=== PATIENT | female | born 1930 | race Caucasian/White ===

== ENCOUNTER → 2017-01-21 | Outpatient (CLI) | payer OTHER, BC | LOC: CIMAGING 16:39 | PROVIDERS: ATTEND Internal Medicine | DX: S49.92XA Unspecified injury of left shoulder and upper arm, initial encounter (principal) | CPT/HCPCS: 73030-PO; G0463-PO ==

== ENCOUNTER → 2017-01-27 | Outpatient (CLI) | payer OTHER, BC | LOC: FIMAGING 10:13 | PROVIDERS: ATTEND Internal Medicine | DX: Z03.89 Encounter for observation for other suspected diseases and conditions ruled out (principal) ==

== ENCOUNTER 2017-07-02 12:54 | Observation (INO) | payer OTHER, BC ==
--- NOTE | 2017-07-02 13:40 | EDPHY ---
HPI/HX/ROS/PE/MDM Narrative: CHIEF COMPLAINT: Possible right arm clot HPI: This patient is an 87 year-old female with history of CAD arriving via EMS from the [facility] for evaluation of swelling in her right hand with associated erythema extending up her right forearm. She has noted an intermittent soft squishy lump in the dorsal aspect of her right hand. Most recently, this swelling has persisted and yesterday she noted redness spreading up her right forearm. She visited staff at the [facility] for evaluation, who called EMS for evaluation of a possible thrombus. The patient denies chest pain, fever, or shortness of breath. She had never had similar symptoms in the past. She denies any history of blood clots in the past or clotting disorders.. REVIEW OF SYSTEMS: Aside from elements discussed in the HPI, a comprehensive 10-point review of systems was reviewed and is negative. PMH: 1. Pacemaker in place. 2. Coronary artery disease 3. Hypertension 4. Hyperlipidemia 5. Depression SOCIAL HISTORY: Lives at [facility]. . Retired. PHYSICAL EXAM: General:Patient is alert, in no acute distress. ENT:Eyes are normal to inspection. ENT inspection normal. Neck: Normal inspection. Full range of motion. Respiratory:No respiratory distress. Breath sounds normal bilaterally. Cardiovascular: Regular rate and rhythm. Strong peripheral pulses. Normal cap refill. Abdomen:The abdomen is nontender to palpation. There are no peritoneal signs. There are normal bowel sounds. Back: Normal to inspection. No tenderness to palpation. Skin: Normal color (see extremity findings). No rash. Warm and dry. Extremities: Soft tender swelling 3cm diameter on dorsum of right hand with erythema extending proximally to the mid forearm as well as distally. Appears well-demarcated. Normal appearance. Full range of motion. Neuro: Oriented x3. Normal motor function. Normal sensory function. ED Course: 87 y/o female presents with right hand swelling. Exam reveals an area of soft tender swelling 3cm in diameter on the dorsum of the right hand with erythema extending proximally to the mid forearm as well as distally. The area appears well-demarcated. Plan for US upper extremity to rule out clot. Spoke with Dr. Sheth, radiologist. US right arm negative for DVT. Evidence of effusion along tendon sheath. Plan to consult with hand specialist. Plan for labs including CBC, BMP. Labs within normal limits. Concern for possible infection given physical exam and ultrasound results. Plan to admit for further evaluation. IV established. Plan to administer 1gm IV Ancef. 15:08 Spoke with hospitalist service. Dr. Guillory accepts admission for tendon sheath infection. MDM: This patient presents with tender swelling on the dorsum of her hand complicated by extension of erythema proximally to her mid-forearm. I suspect this may represent inflammation complicated by bleeding given history of Eliquis , but US shows fluid around tendon sheath, and described to me by phone as loculated, so I am concerned this may represent infection, despite normal CBC. - Data Points Imaging Results: Imaging Impressions Extremity Venous Study 07/02/17 12:56 Impression: 1. No right arm DVT. 2. Extensor tendon sheath effusion. Results discussed with Dr. Altamirano. Imaging: Discussed imaging studies w/ inbound call center representative Radiologist Laboratory Results: Laboratory Results 07/02/17 14:30 07/02/17 14:30 07/02/17 07/02/17 14:30 14:30 WBC 6.58 10^3/uL 10^3/uL (3.80-9.50) RBC 4.20 10^6/uL 10^6/uL (4.18-5.33) Hgb 13.4 g/dL g/dL (12.6-16.3) Hct 38.7 % % (38.0-47.0) MCV 92.1 fL fL (81.5-99.8) MCH 31.9 pg pg (27.9-34.1) MCHC 34.6 g/dL g/dL (32.4-36.7) RDW 13.2 % % (11.5-15.2) Plt Count 286 10^3/uL 10^3/uL (150-400) MPV 9.6 fL fL (8.7-11.7) Neut % (Auto) 68.9 % % (39.3-74.2) Lymph % (Auto) 16.7 % % (15.0-45.0) [place] % (Auto) 9.6 % % (4.5-13.0) Eos % (Auto) 3.6 % % (0.6-7.6) Baso % (Auto) 0.9 % % (0.3-1.7) Nucleat RBC Rel Count 0.0 % % (0.0-0.2) Absolute Neuts (auto) 4.53 10^3/uL 10^3/uL (1.70-6.50) Absolute Lymphs (auto) 1.10 10^3/uL 10^3/uL (1.00-3.00) Absolute Monos (auto) 0.63 10^3/uL 10^3/uL (0.30-0.80) Absolute Eos (auto) 0.24 10^3/uL 10^3/uL (0.03-0.40) Absolute Basos (auto) 0.06 10^3/uL 10^3/uL (0.02-0.10) Absolute Nucleated RBC 0.00 10^3/uL 10^3/uL (0-0.01) Immature Gran % 0.3 % % (0.0-1.1) Immature Gran # 0.02 10^3/uL 10^3/uL (0.00-0.10) Sodium 140 mEq/L mEq/L (134-144) Potassium 4.5 mEq/L mEq/L (3.5-5.2) Chloride 104 mEq/L mEq/L (97-110) Carbon Dioxide 27 mEq/l mEq/l (22-31) Anion Gap 9 mEq/L mEq/L (8-16) BUN 18 mg/dL mg/dL (7-23) Creatinine 1.0 mg/dL mg/dL (0.6-1.0) Estimated GFR 53 Glucose 85 mg/dL mg/dL (70-100) Calcium 9.3 mg/dL mg/dL (8.5-10.4) Medications Given: Discontinued Medications Cefazolin Sodium/Dextrose (Ancef 1 Gm (Premix)) 50 mls @ 200 mls/hr IV EDNOW ONE PRN Reason: Protocol Stop: 07/02/17 15:23 Last Admin: 07/02/17 15:41 Dose: 50 mls General Initial Vital Signs: Initial Vital Signs Temperature (C) 36.8 C 07/02/17 13:06 Heart Rate 60 07/02/17 13:06 Respiratory Rate 16 07/02/17 13:06 Blood Pressure 128/93 H 07/02/17 13:06 O2 Sat (%) 94 07/02/17 13:06 O2 Delivery Mode Room Air Allergies/Adverse Reactions: Sulfa (Sulfonamide Antibiotics) Allergy (Severe, Verified 12/11/13 14:08) atorvastatin Allergy (Unknown, Verified 07/02/17 18:35) Home Medications: Medication Instructions Recorded Benazepril HCl [Lotensin (*)] 20 mg PO DAILY 11/25/11 Calcium Carbonate/Vitamin D3 1 each PO DAILY 11/25/11 [Calcium 600-Vit D3 200 Tablet] Multivitamin [Tab-A-Anjelica] 1 each PO DAILY 11/25/11 Apixaban [Eliquis] 2.5 mg PO BID 07/02/17 Diltiazem HCl [Diltiazem ER] 120 mg PO DAILY 07/02/17 Paroxetine HCl 20 mg PO DAILY@18 07/02/17 Simvastatin 10 mg PO DAILY@18 07/02/17 Triamcinolone 0.1% [Triamcinolone 1 alicia TP BID PRN 07/02/17 0.1% Cream (*)] buPROPion [Wellbutrin 75mg (*)] 75 mg PO DAILY 07/02/17 Departure - Departure Disposition: [facility] Acute Clinical Impression: Infection of tendon sheath Condition: Fair Report Scribed for: Mayank Altamirano Report Scribed by: Krista Valdovinos Date of Report: 07/02/17 Time of Report: 14:10 Physician Review and Approval Statement: Portions of this note were transcribed by an ED scribe. I personally performed the history, physical exam, and medical decision making; and confirm the accuracy of the information in the transcribed note.
[2017-07-02 14:40] LABS: PLATELET COUNT 286 10^3/uL (150-400)
[2017-07-02 18:26] VITALS: RESP 16
[2017-07-02] MEDS ORDERED: ONDANSETRON 4 MG/2 ML VIAL IVP PRN (19:04)
[2017-07-02] MEDS ORDERED: ACETAMINOPHEN 325 MG TAB PO PRN (19:04)
[2017-07-02] MEDS ORDERED: ONDANSETRON DISINTEGRATING 4 MG TAB PO PRN (19:04)
--- NOTE | 2017-07-02 20:20 | GHP ---
[f rep st] HISTORY AND PHYSICAL DATE OF ADMISSION: 07/02/2017 CHIEF COMPLAINT: Left hand redness. HISTORY OF PRESENT ILLNESS: This is an 87-year-old female with a history of previous TIAs on Eliquis . She states she sometimes gets tendon sheath inflammation on her right dorsum of the hand. This edouard ppened yesterday. swelling. However, it was accompanied by increasing redness to her fin gers and up through her forearm. She is not having any fevers or chills. She was told to come to [facility] emergency department. She is not having much pain. It actually has gotten a lot better over the l ast several hours. She did receive a dose of IV Ancef in the emergency department. REVIEW OF SYSTEMS: A 10-point review of systems was obtained and was negative. PAST MEDICAL HISTORY: 1. TIAs with possible atrial fibrillation on anticoagulation. 2. Pacemaker. 3. Coronary artery disease. 4. Hypertension. 5. Hyperlipidemia. 6. Depression. SOCIAL HISTORY: Lives in [place]. No smoking or alcohol. FAMILY HISTORY: Both parents are . PHYSICAL EXAMINATION: VITAL SIGNS: Afebrile, blood pressure is 120/93, heart rate 76, oxygen satura tion 95% on room air. GENERAL: The patient is well developed, thin but in no apparent distress. HE ENT: Nonicteric sclerae. Extraocular movements intact. Moist mucous membranes. NECK: Supple. No thyromegaly. LUNGS: Good effort. Clear to auscultation bilaterally. CARDIOVASCULAR: Regular rat e and rhythm. No murmurs, gallops. ABDOMEN: Positive bowel sounds. Soft, nontender, nondistended. No hepatosplenomegaly. EXTREMITIES: Right hand shows some mild erythema, but it seems more like e cchymosis tracking up to the mid forearm into the distal fingers with a sharp delineation and no sign ificant erythema or warmth. NEUROLOGIC: Moving all 4 extremities equally. PSYCH: Normal affect. LABORATORIES: CBC is completely normal. Chemistries completely normal. Venous ultrasound shows no clot, does show right tendon sheath effusion. ASSESSMENT: This is an 87-year-old female presenting with tendon sheath infection versus hematoma. PLAN: I am favoring hematoma currently as she has no elevated white blood cell count nor fever and t he appearance looks more like hematoma rather than infection. She is on Eliquis. We will discontinu e this. I am going to check a procalcitonin which will help us rule out infection. I believe Orthop edic Surgery is also following. She can probably be discharged tomorrow either off her Eliquis or on an oral antibiotic. /[id number]/MODL
[2017-07-02] MEDS ORDERED: PRAVASTATIN SODIUM 20 MG TAB ONE (21:08)
[2017-07-02] MEDS ORDERED: PARoxetine HCL 20 MG TAB ONE (21:08)
[2017-07-03 04:41] LABS: PLATELET COUNT 283 10^3/uL (150-400)
[2017-07-03 08:07] VITALS: PULSE 87; O2SAT 94
[2017-07-03] MEDS ORDERED: BENAZEPRIL HCL 20 MG TAB PO SCH (09:00)
[2017-07-03] MEDS ORDERED: buPROPion 75 MG TAB PO SCH (09:00)
[2017-07-03] MEDS ORDERED: DILTIAZEM CD 120 MG CAP PO SCH (09:00)
--- NOTE | 2017-07-03 11:43 | HOSPPROG ---
Hospitalist Progress Note Assessment/Plan: Patient is an 87-year-old female with a history of previous TIAs. She is on Eliquis. She sometimes gets tendon sheath inflammation on her right dorsum of her hand and it sounds that this occurred prior to admission. She came to the ER because she had increasing redness to her fingers and up to her forearm. Today is my 1st encounter with the patient. Chart reviewed. * right arm extensor tendon sheath effusion -initial concern was infection versus a hematoma -procalcitonin is not elevated -white blood cell count is stable -reviewed her care with orthopedics, likely a ganglion cyst * TIAs with possible atrial fibrillation on anticoagulation * coronary artery disease * hypertension -bp stable *Plan: dc home w further f/u with Dr Estrada Subjective: Monica said her hand is much better today. Objective: Vital Signs Temp Pulse Resp BP Pulse Ox 36.6 C 87 16 111/70 94 07/03/17 07:57 07/03/17 08:51 07/03/17 07:57 07/03/17 08:51 07/03/17 07:57 Laboratory Results 07/03/17 04:25 07/03/17 04:25 07/02/17 07/03/17 07/04/17 05:59 05:59 05:59 Intake Total 50 Balance 50 - Physical Exam Constitutional: no apparent distress, appears nourished, other (slender) Eyes: PERRL Ears, Nose, Mouth, Throat: hearing normal Cardiovascular: regular rate and rhythym Respiratory: no respiratory distress Gastrointestinal: normoactive bowel sounds Skin: warm, other (right hand shows ecchymosis with some erythema over the knuckles, not warm to the touch) Musculoskeletal: full muscle strength Neurologic: AAOx3 Psychiatric: interacting appropriately, not anxious ICD10 Worksheet Patient Problems: Problems Problem Status Onset Infection of tendon sheath Acute Heart block Active
[2017-07-03 11:59] VITALS: BP 126/73; TEMP 97.6
--- NOTE | 2017-07-03 13:02 | GCON ---
[f rep st] CONSULTATION DATE OF CONSULTATION: 07/03/2017 CURRENT COMPLAINT: Right dorsal hand mass. HISTORY OF PRESENT ILLNESS: This is an 87-year-old female who has had a mass on the dorsal portion o f her hand that gets bigger and smaller, depending on her activity level. It has recently gotten daren er and caused a great deal of bruising on the dorsal portion of her hand. She was admitted to the [facility] for further observation and concern about a possible infection. She had an ultrasound in the E R revealing fluid-filled mass on the dorsal portion of her hand. PHYSICAL EXAMINATION: The patient remains neurologically intact of the radial, median and ulnar nerv es of the hand. She has free movement through the wrist and through the fingers with particular empha sis on the extensors of the wrist and digits. She has a soft ballotable mass on the dorsal portion of her hand which appears to be loculated with multiple small masses within it. It is nontender to pal pation. There is no redness, no erythema and no significant warmth. She does have bruising that has settled into the MCP joints and along the proximal phalanges of the hand. ASSESSMENT AND PLAN: The patient is status post right dorsal wrist and hand ganglion. Options were d iscussed the patient to include continued conservative management versus more aggressive treatment beltran ch as aspiration rate than operative treatment. I have strongly suggested she consider more conserva tive management for now. If, however, these become more bothersome, she is welcome to undergo a more aggressive treatment but otherwise she is welcome to use the hand ad jamila. /[id number]/MODL
--- NOTE | 2017-07-03 15:08 | ASDISCHSUM ---
Discharge Information Plan Status:Home with No Needs Medically Cleared to Leave: Discharge Date:07/03/2017 12:48 PM CM D/C Disposition:Home, Routine, Self-Care ADT D/C Disposition:Home, Routine, Self-Care Projected Discharge Date:07/03/2017 12:48 PM Transportation at D/C: Discharge Delay Reason: Follow-Up Date:07/03/2017 12:48 PM Discharge Slot: Final Diagnosis: Placement Information Patient Contact Information Contact Name:KYLEE Relationship: Address:[address] [place] [address] [address] Work Phone: [facility]:[place] Alternate Phone: [facility]/Zip Code:[place] [address] Email: Financial Information Financial Class: Primary Plan Desc:MEDICARE OUTPATIENT Primary Plan Number:[id number] Secondary Plan Desc:[facility] FEDERAL PLAN Secondary Plan Number:[id number] Assessment Information LACE LACE Acuity / Level of Care Answers: Was the patient admitted to hospital via the emergency department? Yes: Emergency dept visits in Answers: 1 last 6 months Score: 4 Date Signed: 07/02/2017 03:55 PM Electronically Signed By:Nannette Lucas RN Intervention Information
[2017-07-03] MEDS ORDERED: PRAVASTATIN SODIUM 20 MG TAB PO SCH (18:00)
[2017-07-03] MEDS ORDERED: PARoxetine HCL 20 MG TAB PO SCH (18:00)
--- NOTE | 2017-07-04 03:34 | GDS ---
[f rep st] DISCHARGE SUMMARY DISCHARGE DIAGNOSES: 1. Right arm extensor tendon sheath fusion with associated ganglion. 2. Transient ischemic attacks with possible atrial fibrillation on chronic anticoagulation. 3. Coronary artery disease. 4. Hypertension. HISTORY OF PRESENT ILLNESS: Briefly, the patient is an 87-year-old female with a history of previous TIAs. She is on Eliquis. She sometimes gets tendon sheath inflammation in the right dorsum of her hand, and it sounds like this was occurring. There was also concern that she might have had an infection versus a hematoma. She was seen and evaluated by myself and Dr. Holder. Dr. Holder thought the lump on her hand was a ganglion that she might benefit from removal or conservative treatment. She will further follow up with the orthopedic surgeon in the outpatient setting. HOSPITAL COURSE: 1. Right arm extensor tendon sheath effusion with associated ganglion cyst. The pain is much better, does not appear to be infected. Will have her follow up with Dr. Estrada on Wednesday for further evaluation. White blood cell count is stable. She is not febrile, and the hand is not warm. It appears that she bled into the fingers and knuckle area. She is on Eliquis. Recommendation was to hold the Eliquis for another day and then resume. If the swelling recurs after being on the Eliquis, to further discuss with Dr. Stiles. 2. TIAs, possible atrial fibrillation. She is on anticoagulation. 3. Coronary artery disease, stable. 4. Hypertension. Blood pressure is stable. DISCHARGE CONDITION: Stable. Blood pressure is 111/70, O2 sats on room air 94% , respiratory rate 16, pulse is 87, temperature 36.6 Celsius. MEDICATIONS AT DISCHARGE: Please see the EMR. DISCHARGE INSTRUCTIONS: 1. Further follow up with Dr. Stiles in regard to her Eliquis. 2. To elevate her hand 3 times a day above her heart and do warm compresses. 3. If her hand gets more red, swollen, to follow up with Dr. Estrada or return to the ER. /[id number]/MODL MTDD
== END 2017-07-03 12:48 | disposition home or self-care (01) ==
LOC: EDUNIT# → F3N 18:36
PROVIDERS: ADMIT Internal Medicine; ATTEND Internal Medicine
DX: M67.431 Ganglion, right wrist (principal); M25.431 Effusion, right wrist; G45.9 Transient cerebral ischemic attack, unspecified; I25.10 Atherosclerotic heart disease of native coronary artery without angina pectoris; I10 Essential (primary) hypertension
CPT/HCPCS: 93971; G0378; J0690; 96374

== ENCOUNTER → 2017-09-23 | Outpatient (CLI) | payer OTHER, BC | LOC: BMCIMAGING 14:57 | PROVIDERS: ATTEND Internal Medicine | DX: R79.89 Other specified abnormal findings of blood chemistry (principal) ==

== ENCOUNTER 2018-08-16 19:03 | Inpatient (IN) | payer OTHER, BC ==
[2018-08-16] MEDS ORDERED: NS 500 ML IV ONE (19:20)
--- NOTE | 2018-08-16 19:44 | EDPHY ---
H & P Stated Complaint: Diarrhea x4 days, recent pnuemonia/antibiotic course, dehydrated, weakness Time Seen by Provider: 08/16/18 19:17 HPI/ROS: CHIEF COMPLAINT: Diarrhea, generalized weakness HISTORY OF PRESENT ILLNESS: 88-year-old female presents with diarrhea and generalized weakness. She was diagnosed with pneumonia 12 days ago and placed on Zithromax and cefuroxime. She completed a 7 day course of antibiotics. She continues to have a moist cough, but otherwise feels better. Onset of diarrhea 1 week ago. The diarrhea is watery and occurs 2-3 times daily. Associated with gradually increasing generalized weakness and 1 episode of vomiting today. Today she was too weak to walk unassisted. History of C diff colitis 2 years ago. No fever or abdominal pain. She usually walks with a steady gait without assistance. REVIEW OF SYSTEMS: complete 10 point ROS reviewed and is negative except for the noted elements in the HPI - Personal History Current Tetanus Diphtheria and Acellular Pertussis (TDAP): Yes Tetanus Vaccine Date: LESS THAN 10 YEARS - Medical/Surgical History Hx Asthma: No Hx Chronic Respiratory Disease: Yes Hx Diabetes: No Hx Cardiac Disease: No Hx Renal Disease: No Hx Cirrhosis: No Hx Alcoholism: No Hx HIV/AIDS: No Hx Splenectomy or Spleen Trauma: No Other PMH: COPD, HTN, depression, cholesterol, Pacemaker, scilosis - Social History Smoking Status: Former smoker Alcohol Use: Sober Drug Use: None - Physical Exam Exam: General Appearance: Alert, pleasant, answers questions appropriately Eyes: Pupils equal and round, no conjunctival pallor ENT, Mouth: Mucous membranes slightly dry Neck: Normal inspection Respiratory: Rales at the right base Cardiovascular: Regular rate and rhythm Gastrointestinal: Abdomen is soft and nontender Neurological: A&O, nonfocal exam, gait not assessed Skin: Warm and dry Extremities: Normal inspection Psychiatric: Mood and affect normal Constitutional: Initial Vital Signs Temperature (C) 37.3 C 08/16/18 19:13 Heart Rate 71 08/16/18 19:13 Respiratory Rate 19 08/16/18 19:13 Blood Pressure 120/86 H 08/16/18 19:13 O2 Sat (%) 95 08/16/18 19:13 O2 Delivery Mode Room Air Allergies/Adverse Reactions: Sulfa (Sulfonamide Antibiotics) Allergy (Severe, Verified 08/16/18 19:13) atorvastatin Allergy (Unknown, Verified 08/16/18 21:41) Home Medications: Medication Instructions Recorded Benazepril HCl [Lotensin (*)] 10 mg PO DAILY 11/25/11 Calcium Carbonate/Vitamin D3 1 each PO DAILY 11/25/11 [Calcium 600-Vit D3 200 Tablet] Multivitamin [Tab-A-Anjelica] 1 each PO DAILY 11/25/11 Apixaban [Eliquis] 2.5 mg PO BID 07/02/17 Paroxetine HCl 20 mg PO DAILY@18 07/02/17 buPROPion [Wellbutrin 75mg (*)] 75 mg PO DAILY 07/02/17 Atorvastatin Calcium [Lipitor 10 10 mg PO HS 08/16/18 mg (*)] Medical Decision Making ED Course/Re-evaluation: This pt presents with diarrhea and dehydration. Concerning for recurrent cdif colitis. Abd exam is benign. IV normal saline 1 L given. Labs reveal hyponatremia, secondary to dehydration, likely contributing to weakness. Pt unable to provide stool sample in ED. Significant fall risk, will admit for rehydration and further eval. The hospitalist service was consulted for admission. Differential Diagnosis: includes though not limited to cdif colitis, SBO, diverticulitis, appy, bowel perforation - Data Points Laboratory Results: Laboratory Results 08/17/18 04:52 08/17/18 04:52 Medications Given: Discontinued Medications Apixaban (Eliquis) 2.5 mg PO BID ARNIE Stop: 02/13/19 08:59 Last Admin: 08/18/18 09:23 Dose: 2.5 mg Atorvastatin Calcium (Lipitor) 10 mg PO HS ARNIE Stop: 02/13/19 20:59 Last Admin: 08/17/18 20:53 Dose: 10 mg Benazepril HCl (Lotensin) 10 mg PO DAILY ARNIE Stop: 02/13/19 09:44 Last Admin: 08/18/18 09:24 Dose: 10 mg Bupropion HCl (Wellbutrin) 75 mg PO DAILY ARNIE Stop: 02/13/19 08:59 Last Admin: 08/18/18 09:23 Dose: 75 mg Sodium Chloride (Ns) 500 mls @ 0 mls/hr IV EDNOW ONE; Wide Open PRN Reason: Protocol Stop: 08/16/18 19:21 Last Admin: 08/16/18 19:51 Dose: 500 mls Multivitamins (Tab-A-Anjelica) 1 each PO DAILY [facility] Stop: 02/13/19 08:59 Last Admin: 08/18/18 09:23 Dose: 1 each Paroxetine HCl (Paxil) 20 mg PO DAILY@18 [facility] Stop: 02/13/19 17:59 Last Admin: 08/17/18 19:36 Dose: 20 mg Departure - Departure Disposition: [facility] Acute Clinical Impression: Dehydration Diarrhea Qualifiers: Diarrhea type: presumed infectious Qualified Code(s): R19.7 - Diarrhea, unspecified Condition: Fair
[2018-08-16 20:04] LABS: PLATELET COUNT 314 10^3/uL (150-400)
[2018-08-16] MEDS ORDERED: ONDANSETRON 4 MG/2 ML VIAL IVP PRN (20:08)
[2018-08-16] MEDS ORDERED: ACETAMINOPHEN 325 MG TAB PO PRN (20:08)
[2018-08-16] MEDS ORDERED: ONDANSETRON DISINTEGRATING 4 MG TAB PO PRN (20:08)
[2018-08-16] MEDS ORDERED: NS 1,000 ML IV SCH (20:15)
--- NOTE | 2018-08-16 21:08 | PDGENHP ---
History and Physical - Chief Complaint Diarrhea, Weakness - History of Present Illness Monica Leavitt is an 88 yo F with a PMHx of A Fib, HTN, HLD who presents to [facility] for diarrhea and weakness. Her daughter is at the bedside who has helped with hx taking. They report that patient was diagnosed with PNA 2 weeks ago and was rx Azithromycin and Cefuroxime for 7 days which she completed last . Towards the end of the 7 day course of abx and for the past 4 days she has experienced 2-5 watery bowel movements per day. She denies any significant abdominal pain. She had one episode of nausea with non-bloody emesis this morning. She started taking Imodium a few days ago with some improvement in frequency of diarrhea. She reports that she has become fatigued and experiencing generalized weakness. She denies any chest pain, SOB, f/c, edema, palpitations. She reports continued mildly productive cough which has significantly improved since abx. History Information - Allergies/Home Medication List Allergies/Adverse Reactions: Sulfa (Sulfonamide Antibiotics) Allergy (Severe, Verified 08/16/18 19:13) atorvastatin Allergy (Unknown, Verified 08/16/18 19:13) Home Medications: Benazepril HCl [Lotensin (*)] 20 mg PO DAILY 11/25/11 [Last Taken 11/24/11 06:00 ] Calcium Carbonate/Vitamin D3 [Calcium 600-Vit D3 200 Tablet] 1 each PO DAILY 26/06 [Last Taken 11/24/11 06:00] Multivitamin [Tab-A-Anjelica] 1 each PO DAILY 11/25/11 [Last Taken 08/16/18] Apixaban [Eliquis] 2.5 mg PO BID 07/02/17 [Last Taken 08/16/18] Diltiazem HCl [Diltiazem ER] 120 mg PO DAILY 07/02/17 [Last Taken Unknown] Paroxetine HCl 20 mg PO DAILY@18 07/02/17 [Last Taken 08/15/18] buPROPion [Wellbutrin 75mg (*)] 75 mg PO DAILY 07/02/17 [Last Taken 08/16/18] Atorvastatin Calcium [Lipitor 10 mg (*)] 10 mg PO HS 08/16/18 [Last Taken Unknown] I have personally reviewed and updated: family history, medical history, social history, surgical history - Past Medical History atrial fibrillation, hypertension, hyperlipidemia - Social History Smoking Status: Former smoker Alcohol Use: Sober Drug Use: None Review of Systems Review of Systems: ROS: 10pt was reviewed & negative except for what was stated in HPI & below Physical Exam Physical Exam: Temp Pulse Resp BP Pulse Ox 37.3 C 62 18 146/66 H 92 08/16/18 19:13 08/16/18 20:56 08/16/18 20:56 08/16/18 20:56 08/16/18 20:56 Constitutional: no apparent distress Eyes: PERRL Ears, Nose, Mouth, Throat: dry mucous membranes Cardiovascular: regular rate and rhythym Respiratory: no respiratory distress Gastrointestinal: soft, non-tender abdomen, No guarding, No rebound, No distension Skin: warm Musculoskeletal: generalized weakness Neurologic: AAOx3 Psychiatric: interacting appropriately Lab Data & Imaging Review 08/16/18 19:50 08/16/18 19:50 WBC 11.79 10^3/uL (3.80-9.50) H 08/16/18 19:50 RBC 3.98 10^6/uL (4.18-5.33) L 08/16/18 19:50 Hgb 11.8 g/dL (12.6-16.3) L 08/16/18 19:50 Hct 35.2 % (38.0-47.0) L 08/16/18 19:50 MCV 88.4 fL (81.5-99.8) 08/16/18 19:50 MCH 29.6 pg (27.9-34.1) 08/16/18 19:50 MCHC 33.5 g/dL (32.4-36.7) 08/16/18 19:50 RDW 13.7 % (11.5-15.2) 08/16/18 19:50 Plt Count 314 10^3/uL (150-400) 08/16/18 19:50 MPV 10.4 fL (8.7-11.7) 08/16/18 19:50 Neut % (Auto) 77.0 % (39.3-74.2) H 08/16/18 19:50 Lymph % (Auto) 10.1 % (15.0-45.0) L 08/16/18 19:50 [place] % (Auto) 11.7 % (4.5-13.0) 08/16/18 19:50 Eos % (Auto) 0.3 % (0.6-7.6) L 08/16/18 19:50 Baso % (Auto) 0.4 % (0.3-1.7) 08/16/18 19:50 Nucleat RBC Rel Count 0.0 % (0.0-0.2) 08/16/18 19:50 Absolute Neuts (auto) 9.08 10^3/uL (1.70-6.50) H 08/16/18 19:50 Absolute Lymphs (auto) 1.19 10^3/uL (1.00-3.00) 08/16/18 19:50 Absolute Monos (auto) 1.38 10^3/uL (0.30-0.80) H 08/16/18 19:50 Absolute Eos (auto) 0.03 10^3/uL (0.03-0.40) 08/16/18 19:50 Absolute Basos (auto) 0.05 10^3/uL (0.02-0.10) 08/16/18 19:50 Absolute Nucleated RBC 0.00 10^3/uL (0-0.01) 08/16/18 19:50 Immature Gran % 0.5 % (0.0-1.1) 08/16/18 19:50 Immature Gran # 0.06 10^3/uL (0.00-0.10) 08/16/18 19:50 Sodium 129 mEq/L (135-145) L 08/16/18 19:50 Potassium 4.5 mEq/L (3.5-5.2) 08/16/18 19:50 Chloride 100 mEq/L (97-110) 08/16/18 19:50 Carbon Dioxide 21 mEq/l (22-31) L 08/16/18 19:50 Anion Gap 8 mEq/L (6-14) 08/16/18 19:50 BUN 17 mg/dL (7-23) 08/16/18 19:50 Creatinine 1.0 mg/dL (0.6-1.0) 08/16/18 19:50 Estimated GFR 52 08/16/18 19:50 Glucose 118 mg/dL (70-100) H 08/16/18 19:50 Calcium 8.8 mg/dL (8.5-10.4) 08/16/18 19:50 Assessment & Plan Assessment: Diarrhea (Acute) - Ongoing for 4 days since treatment with abx - Minimal abdominal pain, physical exam with non-tender, non-distended abdomen - Likely Antibiotic related diarrhea vs. C Diff vs. other GI Pathogen - GI PCR and C Diff Ordered - Patient does have hx of C Diff, unclear if treated at that time 2 yrs ago - If C Diff negative, start imodium Dehydration (Acute) - In setting of diarrhea above - S/p 500 cc IVF bolus in ED - BUN/Cr WNL, will continue mIVF overnight Hyponatremia - Na 129 on admission - Likley hypovolemic in setting of decreased PO intake, diarrhea - S/p 500 cc bolus NS in ED, will continue m IVF overnight - Repeat Na in the morning HLD - Continue home Simvastatin Recent PNA - CXR on admission showing no acute consolidation - No need for further abx FEN: IVF, Regular DVT PPx: Home [place] Code: FULL Dispo: Admit to Observation
[2018-08-17 05:29] LABS: PLATELET COUNT 323 10^3/uL (150-400)
[2018-08-17] MEDS: MULTIVITAMINS 1 EACH TAB PO SCH (11:34)
[2018-08-17] MEDS: APIXABAN 2.5 MG TAB PO SCH ×2 (11:34→20:53)
[2018-08-17] MEDS: BENAZEPRIL HCL 10 MG TAB PO SCH (11:34)
[2018-08-17] MEDS: buPROPion 75 MG TAB PO SCH (11:35)
[2018-08-17] MEDS ORDERED: BENZONATATE 100 MG CAP PO PRN (13:56)
--- NOTE | 2018-08-17 14:49 | ASMTCMCOM ---
CM Note CM Note Notes: Met with Pt who was admitted with Diarrhea and general weakness. PT & OT recomend Home Care. Provided Pt with a list of HC, she will discuss with her son and let CM know. Pt lives in independant living at the [facility]. D/c plan [facility] Date Signed: 08/17/2018 02:48 PM Electronically Signed By:Radha Plascencia
--- NOTE | 2018-08-17 17:14 | HOSPPROG ---
Hospitalist Progress Note Assessment/Plan: Diarrhea (Acute) - Ongoing for 4 days since treatment with abx - Minimal abdominal pain, physical exam with non-tender, non-distended abdomen - Likely Antibiotic related diarrhea vs. C Diff vs. other GI Pathogen - GI PCR and C Diff Ordered - Patient does have hx of C Diff, unclear if treated at that time 2 yrs ago - If C Diff negative, start imodium Dehydration (Acute) - In setting of diarrhea above - S/p 500 cc IVF bolus in ED - BUN/Cr WNL, will continue mIVF overnight Hyponatremia - Na 129 on admission, corrected with IVF. patient not taking great PO, would like to be sure she is meeting her needs orally prior to dc. - Sharyn hypovolemic in setting of decreased PO intake, diarrhea - S/p 500 cc bolus NS in ED, will continue m IVF overnight - Repeat Na in the morning HLD - Continue home Simvastatin Recent PNA - CXR on admission showing no acute consolidation - No need for further abx FEN: IVF, Regular DVT PPx: Home [place] Code: FULL Dispo: likely dc in am, if able to tolerate PO Subjective: feeling better today, still weak. not taking great po Objective: Vital Signs Temp Pulse Resp BP Pulse Ox 36.6 C 60 16 164/82 H 92 08/17/18 16:06 08/17/18 16:06 08/17/18 16:06 08/17/18 16:06 08/17/18 16:06 Laboratory Results 08/17/18 04:52 08/17/18 04:52 08/16/18 08/17/18 08/18/18 05:59 05:59 05:59 Intake Total 1366 Output Total 0 600 Balance 1366 -600 - Physical Exam Constitutional: no apparent distress, appears nourished, not in pain Eyes: PERRL, anicteric sclera, EOMI Ears, Nose, Mouth, Throat: moist mucous membranes, hearing normal, ears appear normal, no oral mucosal ulcers Cardiovascular: regular rate and rhythym, no murmur, rub, or gallop Respiratory: no respiratory distress, no rales or rhonchi, clear to auscultation Gastrointestinal: normoactive bowel sounds, soft, non-tender abdomen, no palpable masses Genitourinary: no bladder fullness, no bladder tenderness, no renal bruits Skin: no rashes or abrasions, no fluctuance, no induration Musculoskeletal: full muscle strength, no muscle tenderness, normal joint ROM Neurologic: AAOx3, sensation intact bilaterally Psychiatric: interacting appropriately, not anxious, not encephalopathic, thought process linear Lymph, Heme, Immunologic: no cervical LAD, no supraclavicular LAD ICD10 Worksheet Patient Problems: Problems Problem Status Onset Dehydration Acute Diarrhea Acute Heart block Active Infection of tendon sheath Acute
[2018-08-17] MEDS ORDERED: PARoxetine HCL 20 MG TAB PO SCH (18:00)
--- NOTE | 2018-08-17 18:11 | PDMN ---
Medical Necessity Medical necessity: [facility] M170 Gastroenteritis, A-1 day: 88yo w acute diarrhea, dehydration and hyponatremia most likely r/t PO antibx pt has been taking for PNA. Initially OBS but pt requires additional MN for ongoing weakness, little PO intake. Anticipate d/c in am if pt able to shirin PO. Hx Afib, HTN, HLD. Change to IP status 08/17/18@1730 per MD order.
[2018-08-17] MEDS ORDERED: ATORVASTATIN CALCIUM 10 MG TAB PO SCH (21:00)
[2018-08-18 08:50] VITALS: BP 184/99
[2018-08-18] MEDS: buPROPion 75 MG TAB PO SCH (09:23)
[2018-08-18] MEDS: APIXABAN 2.5 MG TAB PO SCH (09:23)
[2018-08-18] MEDS: MULTIVITAMINS 1 EACH TAB PO SCH (09:23)
[2018-08-18] MEDS: BENAZEPRIL HCL 10 MG TAB PO SCH (09:24)
--- NOTE | 2018-08-18 10:02 | PDIAF ---
- Diagnosis Code Status: Do Not Resuscitate - Medication Management Discharge Medications: electronically signed and located in the Home Medication List. - Orders Services needed: Home Care, Registered Nurse, Certified Planishing Press Operator, Physical Therapy, Occupational Therapy Home Care Face to Face: I certify that this patient was under my care and that I had the required [id number] encounter meeting the encounter requirements on the discharge day. My findings support the fact that the patient is homebound as defined in Home Care Face to Face Continued: CMS Chapter 7 Medicare Benefits Manual 30.1.1 , The condition of the patient is such that there exists a normal inability to leave home and consequently, leaving home would require a considerable and taxing effort. Isolation Type: Contact Isolation Diet Recommendation: no restrictions on diet Diet Texture: Regular Texture Diet Additional Instructions: Resume your medications as prescribed. Resume activity as tolerated. Follow up with your primary care physician. - Follow Up Care Current Providers and Referrals: Bernardo Estrada MD [Primary Care Provider] - As per Instructions
--- NOTE | 2018-08-18 11:05 | ASMTLACE ---
ANH Length of stay for Answers: 1 day current admission Acuity / Level of Answers: Yes Care: Did the patient have an inpatient admission? Comorbidities - select Answers: Chronic pulmonary disease all that apply Opioid dependence / Chronic pain Other Notes: HTN; AFib; HLD # of Emergency department Answers: 1-2 visits in the last 6 months Social determinants Answers: Mental health diagnosis (anxiety, depression, pers onality disorders, etc.) Score: 15 Date Signed: 08/18/2018 11:04 AM Electronically Signed By:Nova Duque RN
--- NOTE | 2018-08-18 11:28 | ASMTDCNOTE ---
Case Management Discharge Discharge Order Complete? Answers: Yes Patient to Obtain Answers: Independently Medications Transportation Arranged Answers: Family/Friends Faxed Final Orders Answers: Yes Family Notified Answers: Yes Discharge Comments Notes: Patient discharged to her home at the [facility]. Home Health PT/OT ordered through [facility]. Mahesh Lee agreed to be front desk person for agency. Date Signed: 08/18/2018 11:28 AM Electronically Signed By:Nova Duque RN
--- NOTE | 2018-08-18 17:09 | PDDCSUM ---
Discharge Summary Discharge Summary: Discharge diagnosis Diarrhea Weakness Hyponatremia Atrial fibrillation Depression Patient is an 88-year-old female with past medical history of atrial fibrillation and depression who is admitted with complaints of acute diarrhea with weakness. Of she was admitted started on intravenous saline and a GI pathogen panel was ordered. However patient spontaneously improved and had no further bowel movements. We were unable to check her GI pathogen panel or C diff because she no longer had any bowel movements. She was able to tolerate p.o. With full regular diet the next morning. Labs were all unremarkable and her vital signs were normal as well. She was discharged home to follow up with her primary care physician Discharge disposition Home with home health Medications She is to resume her normal home medications
--- NOTE | 2018-08-19 11:12 | ASDISCHSUM ---
Discharge Information Plan Status:Home with Home Health Medically Cleared to Leave: Discharge Date:08/18/2018 11:36 AM CM D/C Disposition: ADT D/C Disposition:Home Health Service Projected Discharge Date:08/18/2018 11:00 AM Transportation at D/C: Discharge Delay Reason: Follow-Up Date:08/18/2018 11:00 AM Discharge Slot: Final Diagnosis: Placement Information Referral Type:*Home Health Care Services Referral ID:[id number] Provider Name:[facility] [place] Address 1:[address] Address 2: City:[place] Selection Factors: State:[place] Patient Contact Information Contact Name:CATALINA Relationship:Son [address] City:[place] Alternate Phone: State/Zip Code:[place] [address] Email: Financial Information Financial Class:Medicare Primary Plan Desc:MEDICARE INPATIENT Primary Plan Number:[id number] Secondary Plan Desc:[facility] Secondary Plan Number:[id number] Assessment Information LACE LACE Length of stay for Answers: 1 day current admission Acuity / Level of Answers: Yes Care: Did the patient have an inpatient admission? Comorbidities - select Answers: Chronic pulmonary disease all that apply Opioid dependence / Chronic pain Other Notes: HTN; AFib; HLD # of Emergency department Answers: 1-2 visits in the last 6 months Social determinants Answers: Mental health diagnosis (anxiety, depression, pers onality disorders, etc.) Score: 15 Date Signed: 08/18/2018 11:04 AM Electronically Signed By:Nova Duque RN [facility] CM Progress Note CM Note CM Note Notes: Met with Pt who was admitted with Diarrhea and general weakness. PT & OT recomend Home Care. Provided Pt with a list of HC, she will discuss with her son and let CM know. Pt lives in independant living at the [facility]. D/c plan [facility] Date Signed: 08/17/2018 02:48 PM Electronically Signed By:Radha Plascencia Case Management Discharge Plan Note Case Management Discharge Discharge Order Complete? Answers: Yes Patient to Obtain Answers: Independently Medications Transportation Arranged Answers: Family/Friends Faxed Final Orders Answers: Yes Family Notified Answers: Yes Discharge Comments Notes: Patient discharged to her home at the [facility]. Home Health PT/OT ordered through [facility]. Son Jesus agreed to be contact lens edge buffer for agency. Date Signed: 08/18/2018 11:28 AM Electronically Signed By:Nova Duque RN Intervention Information Intervention Type:*Incorrect Registration Date of Service:08/17/2018 09:37 AM Patient Type:Inpatient Staff Member:Magda Duvall Hours: Discipline: Severity: Comment: Intervention Type:*ROJAS-Signed Date of Service:08/17/2018 02:40 PM Patient Type:Observation Staff Member:Nenita Low Hours: Discipline: Severity: Comment: Intervention Type:*Juan 73 Date of Service:08/18/2018 12:21 PM Patient Type:Inpatient Staff Member:Lurdes Ware Hours: Discipline: Severity: Comment:
== END 2018-08-18 11:36 | disposition home health service (06) | DRG 392 ==
LOC: INTOOBSV 20:06 → F1N 21:24 → OBSVTOIN 08-17 17:30
PROVIDERS: ADMIT Internal Medicine; ATTEND Internal Medicine
DX: R19.7 Diarrhea, unspecified (principal); E86.0 Dehydration; E87.1 Hypo-osmolality and hyponatremia; R53.1 Weakness; I48.91 Unspecified atrial fibrillation; F32.9 Major depressive disorder, single episode, unspecified; J44.9 Chronic obstructive pulmonary disease, unspecified; I10 Essential (primary) hypertension; E78.5 Hyperlipidemia, unspecified; Z95.0 Presence of cardiac pacemaker
CPT/HCPCS: 97116-GP; 97161-GP; 97166-GO; G0378